=== PATIENT | female | born 1960 | race Caucasian/White ===

== ENCOUNTER → 2021-01-07 02:42 | Outpatient (CLI) | payer OTHER, SELFPAY ==
[2021-01-07 22:46] LABS: SARS-CoV-2 RNA PCR Negative
== END ==
PROVIDERS: PCP Internal Medicine; Visit Provider Internal Medicine Gastroenterology
DX: Z01.812 Encounter for preprocedural laboratory examination (principal); Z20.822 Contact with and (suspected) exposure to COVID-19
CPT/HCPCS: C9803; U0003; U0005

== ENCOUNTER 2021-01-10 00:57 | Day surgery (SDC) | payer OTHER, SELFPAY ==
[2021-01-02 09:02] VITALS: BMI 38.2
[2021-01-10 06:47] VITALS: BP 153/85; PULSE 83; RESP 20; TEMP 36.5; O2SAT 95; BMI 38.9
[2021-01-10] MEDS: LACTATED RINGERS 1,000 ML 150 ML IV CONT (06:56)
--- NOTE | 2021-01-10 07:20 | PM.HPGS ---
History of Present Illness History of Present Illness Consent: Risks, benefits, and alternatives have been discussed and questions answered. Patient agrees to proceed with procedure. Chief complaint: neoplasm screening Narrative: Aleece Loida Cruz is a 60 year old female Referred for screening colonoscopy. Her last colonoscopy was 15 years ago. A grandparent had colon cancer Review of Systems Review of Systems: All systems reviewed & are unremarkable except as noted in HPI and below PMFSH Past Medical History Medical History (Updated 01/09/21 @ 13:47 by Johny Salas MD) Hypertension Migraine Family History Family History Sibling Patient's sister is in good health Patient's brother is in good health Father Patient's father is Social History Social History Smoking status: Never smoker Second hand tobacco smoke exposure: No Alcohol intake: never Substance use: never Substance use type: does not use Living arrangements: with family Spiritual care concerns: No Meds Home Medications and Allergies Home Medications Medication Instructions Recorded Confirmed Type naratriptan 2.5 mg tablet See Rx Instructions PO .COMPLEX 12/04/19 01/10/21 History naltrexone 50 mg tablet 3 mg PO BID tablet 12/05/19 01/10/21 History olmesartan 40 1 tablet PO DAILY #90 tablet 08/15/20 01/10/21 Rx mg-hydrochlorothiazide 12.5 mg tablet topiramate 50 mg tablet 50 mg PO BID #60 tablet 08/20/20 01/10/21 Rx pramipexole 0.5 mg tablet 0.5 mg PO .hs #30 tablet 10/14/20 01/10/21 Rx aspirin [Aspir-81] 81 mg PO DAILY 01/02/21 01/10/21 History Allergies Allergy/AdvReac Type Severity Reaction Status Date / Time cefuroxime Allergy Severe Hives Verified 01/10/21 06:40 Vital Signs Vital Signs - 24 hr 01/10/21 06:47 Temperature 36.5 C Pulse Rate 83 Respiratory Rate 20 Blood Pressure 153/85 H Pulse Oximetry 95 Exam Resp: Auscultation: clear to auscultation bilaterally Cardio: Rate: regular rate Rhythm: regular rhythm GI: GI Palp: Yes Soft to palpation and No Tenderness to palpation present (GI) Assessment and Plan Assessment and plan (1) Encounter for screening colonoscopy: Code(s): Z12.11 - Encounter for screening for malignant neoplasm of colon Status: Acute Assessment and Plan: Colonoscopy with possible biopsy or polypectomy or cautery or injection of substances.
--- NOTE | 2021-01-10 07:56 | WPDANESEPPF ---
Anes - Initial Pre Proc Eval Procedure: Operation Date: 01/10/21 08:00 Proposed Procedures p Screening Colonoscopy - Abram Becerra MD Date/Time: 01/10/21 07:56 Surgeon: Abram Becerra MD Pre Op Diagnosis: neoplasm screening Patient Data Age: 60 Gender: F Height: 5 ft 8 in Weight: 116.1 kg Last Vital Signs Temp 36.5 C 01/10/21 06:47 Pulse 83 01/10/21 06:47 Resp 20 01/10/21 06:47 BP 153/85 H 01/10/21 06:47 Pulse Ox 95 01/10/21 06:47 Allergies Allergy/AdvReac Type Severity Reaction Status Date / Time cefuroxime Allergy Severe Hives Verified 01/10/21 06:40 Home Medications Medication Instructions Recorded Confirmed Type naratriptan 2.5 mg tablet See Rx Instructions PO .COMPLEX 12/04/19 01/10/21 History naltrexone 50 mg tablet 3 mg PO BID tablet 12/05/19 01/10/21 History olmesartan 40 1 tablet PO DAILY #90 tablet 08/15/20 01/10/21 Rx mg-hydrochlorothiazide 12.5 mg tablet topiramate 50 mg tablet 50 mg PO BID #60 tablet 08/20/20 01/10/21 Rx pramipexole 0.5 mg tablet 0.5 mg PO .hs #30 tablet 10/14/20 01/10/21 Rx aspirin [Aspir-81] 81 mg PO DAILY 01/02/21 01/10/21 History Patient hx anesthesia problems: other (CRPS from nerve block) Family hx anesthesia problems: none PMFSH Past Medical History Medical History CRPS (complex regional pain syndrome) Hypertension Migraine Pure hypercholesterolemia, unspecified Family History Family History Sibling Patient's sister is in good health Patient's brother is in good health Father Patient's father is Social History Social History Smoking status: Never smoker Second hand tobacco smoke exposure: No Alcohol intake: never Substance use: never Substance use type: does not use Living arrangements: with family Spiritual care concerns: No Anes - Eval Final PreProcedure Day of Procedure 01/10/21 07:56 Patient weight: obese Heart: regular rate and rhythm Lungs: clear to auscultation Airway: Mallampati scale class III Neurological: alert and oriented Last oral intake: >/= 8 hours ASA classification: III Emergent: no Anesthetic plan: proceed Anesthesia type and monitoring: general GIVS and standard monitoring Informed Consent: The patient's anesthetic plan and its attendant risks and benefits were discussed with the patient/family/POA. Questions were solicited and answers provided to the satisfaction of the patient/family/POA.
[2021-01-10 08:21] VITALS: BP 120/72; PULSE 65; RESP 17; O2SAT 96
[2021-01-10 08:31] VITALS: BP 134/88; PULSE 69; RESP 22; O2SAT 97
[2021-01-10 08:41] VITALS: BP 141/85; PULSE 68; RESP 11; O2SAT 98
== END 2021-01-10 08:49 | disposition home or self-care (01) ==
PROVIDERS: PCP Internal Medicine; Visit Provider Internal Medicine Gastroenterology
PROC: 0DJD8ZZ Inspection of Lower Intestinal Tract, Via Natural or Artificial Opening Endoscopic (ICD-10-PCS; CPT 45378; principal; 2021-01-10 08:00)
DX: Z12.11 Encounter for screening for malignant neoplasm of colon (principal); K57.30 Diverticulosis of large intestine without perforation or abscess without bleeding; I10 Essential (primary) hypertension; E78.00 Pure hypercholesterolemia, unspecified; Z79.82 Long term (current) use of aspirin; E66.9 Obesity, unspecified; Z68.38 Body mass index [BMI] 38.0-38.9, adult
CPT/HCPCS: 45378; C9803; J2001; J2704; J7120; U0003; U0005